=== PATIENT | female | born 1980 | race Caucasian/White ===

== ENCOUNTER 2022-05-18 16:28 | Outpatient (CLI) | payer OTHER ==
[2022-05-18 17:27] LABS: Hemoglobin 14.9 g/dL (12.0-15.5); Mean Corpuscular Hemoglobin 29.4 pg (27.0-33.0); Mean Corpuscular Volume 86.4 fl (81.6-98.3); Mean Platelet Volume 10.3 fl (7.4-10.4); Platelet Count 349 10x3/uL (150-450); RBC Distribution Width 13.2 % (11.5-14.5); Red Blood Cell (RBC) Count 5.07 10x6/uL (3.90-5.03); White Blood Cell (WBC) Count 11.4 10x3/uL (3.5-10.5)
[2022-05-18 17:45] LABS: PTT 28.2 sec (22.0-33.0); Prothrombin Time 10.6 sec (9.5-12.1)
== END 2022-05-18 16:29 | disposition home or self-care (01) ==
LOC: LABBT 16:28
PROVIDERS: ATTEND Neurological Surgery
DX: Z01.812 Encounter for preprocedural laboratory examination (principal); M50.023 Cervical disc disorder at C6-C7 level with myelopathy; Z20.822 Contact with and (suspected) exposure to COVID-19
CPT/HCPCS: 85027; 85610; 85730; 87811

== ENCOUNTER 2022-05-21 06:42 | Day surgery (SDC) | payer OTHER ==
[2022-05-20 08:57] VITALS: BMI 22.6
[2022-05-21] MEDS ORDERED: Thrombin 5000 UNITS/5 ML VIAL ONE ×3 (08:46→16:29)
[2022-05-21] MEDS ORDERED: Bupivacaine HCl 0.5%/Epinephrine 1:200,000/PF 30 ml Vial ONE ×2 (08:46→13:46)
[2022-05-21] MEDS ORDERED: Famotidine/PF 20 mg/2ml Vial ONE (10:41)
[2022-05-21] MEDS ORDERED: Ondansetron PF 4 MG/2 ML Vial ONE ×3 (10:41→16:50)
[2022-05-21] MEDS ORDERED: Scopolamine 1.5 mg/72 hour Patch ONE (10:41)
[2022-05-21] MEDS ORDERED: Neomycin-Polymyxin 1 ML AMP ONE (13:46)
[2022-05-21] MEDS ORDERED: fentaNYL Citrate/PF 100 MCG/2 ML SYRINGE ONE (13:52)
[2022-05-21] MEDS ORDERED: Sodium Chloride 0.9% 100 ML ONE (13:54)
[2022-05-21] MEDS ORDERED: CEFAZOLIN 2 GM VIAL ONE (13:54)
[2022-05-21] MEDS ORDERED: Dexamethasone 20 MG/5 ML VIAL ONE (14:04)
[2022-05-21] MEDS ORDERED: PROPOFOL 200 MG/20 ML VIAL ONE (14:04)
[2022-05-21] MEDS ORDERED: Lidocaine 1% MPF 2 ML VIAL ONE (14:04)
[2022-05-21] MEDS ORDERED: Rocuronium Bromide 10 MG/ML (10ML VIAL) ONE (14:04)
[2022-05-21] MEDS ORDERED: SUGAMMADEX SODIUM 200 MG/2 ML VIAL ONE (16:00)
[2022-05-21] MEDS ORDERED: Bupivacaine/Epinephrine 0.25% 30 ML VIAL ONE (16:29)
[2022-05-21] MEDS ORDERED: Fentanyl 100 MCG/2 ML VIAL ONE (16:49)
[2022-05-21] MEDS ORDERED: Promethazine HCl 25 MG/ML VIAL ONE (17:30)
== END 2022-05-21 18:10 | disposition home or self-care (01) ==
LOC: SDC 06:42
PROVIDERS: ATTEND Neurological Surgery
PROC: 0RG10K1 Fusion of Cervical Vertebral Joint with Nonautologous Tissue Substitute, Posterior Approach, Posterior Column, Open Approach (ICD-10-PCS; principal; 2022-05-21)
DX: M50.123 Cervical disc disorder at C6-C7 level with radiculopathy (principal); M50.023 Cervical disc disorder at C6-C7 level with myelopathy; J43.9 Emphysema, unspecified; G89.4 Chronic pain syndrome; G47.33 Obstructive sleep apnea (adult) (pediatric); Z88.2 Allergy status to sulfonamides; Z87.891 Personal history of nicotine dependence
CPT/HCPCS: 76000; C1713; J0690; J1100; J2405; J2550; J2704; J3010; J3370; J3490; S0028